=== PATIENT | female | born 1990 | race Caucasian/White ===

== ENCOUNTER 2020-06-30 19:28 | Emergency (ER) | payer SELFPAY ==
[~2020-06-30] VITALS: Ht 175.3 cm; Wt 67.6 kg
--- NOTE | 2020-06-30 20:05 | NUR ---
BIBFAMILY FROM HOME TO ER BED 6. AAOX4. NOT IN RESP DISTRESS. AMBULATORY. CAME IN FOR LOWER ABD CRAMPING AND VAGINAL BLEEDING STARTED TODAY. PT IS ALSO COMPLANING OF A LINGERING COUGH FOR 2 WEEKS. PROVIDER WAS AT THE BEDSIDE FOR EVAL. AWAITING ORDERS
[2020-06-30 21:20] LABS: BILIRUBIN,URINE NEGATIVE (NEGATIVE); BLOOD, URINE LARGE Ery/uL (NEGATIVE); COLOR,URINE YELLOW (YELLOW); LEUKOCYTE ESTERASE ,URINE SMALL (NEGATIVE); NITRITE, URINE NEGATIVE (NEGATIVE); PROTEIN,URINE NEGATIVE (NEGATIVE); UGLUCOSE NEGATIVE (NEGATIVE); UROBILINOGEN,URINE 0.2 EU/dL (0.2)
[2020-06-30 21:26] LABS: BACTERIA,URINE 1+ /HPF (None Seen); RBC,URINE 51-80 /HPF (0-2); SQUAMOUS EPITHELIAL CELL,UR Few /HPF (None Seen)
--- NOTE | 2020-06-30 21:58 | NUR ---
Patient discharged to home in stable condition. Written and verbal after care instructions given. Patient verbalizes understanding of instruction. Pt ambulatory with a steady gait
[2020-06-30 22:01] VITALS: BP 112/73
== END 2020-06-30 22:02 | disposition home or self-care (01) ==
LOC: ER 19:36
DX: J18.9 Pneumonia, unspecified organism (principal); N94.6 Dysmenorrhea, unspecified
CPT/HCPCS: 71045-TC; 76856-TC; 81001; 84703-TC; 87086-TC